=== PATIENT | female | born 1990 | race Two or more races ===

== ENCOUNTER 2018-02-24 18:18 | Emergency (ER) | payer OTHER ==
[~2018-02-24] VITALS: Ht 172.7 cm; Wt 49.9 kg
[~2018-02-24 18:18] MED LIST: TRIAMCINOLONE A15 GM TOP
[2018-02-24] MEDS ORDERED: AMOXICILLIN500 MG PO (19:05)
[2018-02-24] MEDS ORDERED: NORCO 5-325 TA1 EACH PO (19:05)
== END 2018-02-24 19:22 | disposition home or self-care (01) ==
LOC: ED 18:18
DX: J02.9 Acute pharyngitis, unspecified (principal)
CPT/HCPCS: 87081; 87880; 99283